=== PATIENT | male | born 1970 | race Caucasian/White ===

== ENCOUNTER → 2018-05-30 | Outpatient (CLI) | payer BC ==
[~2018-05-30] MED LIST: ATOR20TA58 PO; CARV6.25 PO; PANT40TA3 PO; RAMI5CAP50 PO
--- NOTE | 2018-05-30 11:49 | CARD ---
MR#: [id number] Date of Study: 05/30/2018 Ordering Physician: JANUSZ FULTON, Referring Physician: JANUSZ FULTON Tech: Miladys Mane RDCS APPROVED REPORT EXAM: Two-dimensional and M-mode echocardiogram with Doppler and color Doppler. Other Information Quality : AverageHR: 64bpm Rhythm : NSR INDICATION CAD 2D DIMENSIONS RVDd2.8 (2.9-3.5cm)Left Atrium(2D)4.1 (1.6-4.0cm) IVSd1.3 (0.7-1.1cm)Aortic Root(2D)3.5 (2.0-3.7cm) LVDd5.1 (3.9-5.9cm)LVOT Diameter2.0 (1.8-2.4cm) PWd1.0 (0.7-1.1cm)LVDs3.7 (2.5-4.0cm) FS (%) 27.4 %SV66.0 ml LVEF(%)53.0 (>50%) M-Mode DIMENSIONS Left Atrium(MM)3.89 (2.5-4.0cm)Aortic Root3.23 (2.2-3.7cm) Aortic Valve AoV Peak Lamberto.153.4cm/sAoV VTI28.1cm AO Peak GR.9.4mmHgLVOT Peak Lamberto.124.6cm/s AO Mean GR.5mmHgAVA (VMAX)2.43cm2 SAMSON (VTI)2.40cm2 Mitral Valve MV E Iyvzecut28.2cm/sMV DECEL ZVBI494xt MV A Awbrxdav483.6cm/sE/A Ratio0.8 MV A Kcsdviri971fu Pulmonary Valve PV Peak Dmjywnvd296.8cm/s LEFT VENTRICLE The left ventricle is normal size. Proximal septal thickening is noted. The left ventricle systolic f unction is normal. The Ejection Fraction is 55%. There is normal LV segmental wall motion. Transmitra l Doppler flow pattern is Grade I-abnormal relaxation pattern. RIGHT VENTRICLE The right ventricle is normal size. There is normal right ventricular wall thickness. The right ventr icular systolic function is normal. ATRIA The left atrium size is normal. The right atrium size is normal. The interatrial septum is intact wit h no evidence for an atrial septal defect or patent foramen ovale as noted on 2-D or Doppler imaging. AORTIC VALVE The aortic valve is normal in structure and function. The aortic valve is trileaflet. Doppler and Col or Flow revealed no significant aortic regurgitation. There is no significant aortic valvular stenosi s. MITRAL VALVE The mitral valve is normal in structure and function. There is no evidence of mitral valve prolapse. There is no mitral valve stenosis. Doppler and Color Flow revealed no mitral valve regurgitation note d. TRICUSPID VALVE The tricuspid valve is normal in structure and function. Doppler and Color Flow revealed trace tricus pid regurgitation. There is no tricuspid valve prolapse or vegetation. There is no tricuspid valve st enosis. PULMONIC VALVE The pulmonary valve is normal in structure and function. Doppler and Color Flow revealed trace pulmon ic valvular regurgitation. There is no pulmonic valvular stenosis. GREAT VESSELS The aortic root is normal in size. The ascending aorta is normal in size. PERICARDIAL EFFUSION There is no evidence of significant pericardial effusion. Critical Notification Critical Value: No <Conclusion> The left ventricle systolic function is normal. The Ejection Fraction is 55%. There is normal LV segmental wall motion. Transmitral Doppler flow pattern is Grade I-abnormal relaxation pattern. Doppler and Color Flow revealed trace tricuspid regurgitation. There is no evidence of significant pericardial effusion. Signed by : Janusz Fulton, Electronically Approved : 05/30/2018 11:46:51
== END | disposition home or self-care (01) ==
LOC: ECHO 10:54
PROVIDERS: ATTEND Internal Medicine Cardiovascular Disease
DX: I25.10 Atherosclerotic heart disease of native coronary artery without angina pectoris (principal)
CPT/HCPCS: 93306

== ENCOUNTER → 2019-05-09 | Outpatient (CLI) | payer BC, OTHER ==
[~2019-05-09] MED LIST changes: -PANT40TA3 PO; +PANT40TA77 PO
--- NOTE | 2019-05-09 13:11 | RAD ---
MR#: [id number] Date of Study: 05/09/2019 Ordering Physician: JANUSZ BRAGA, Referring Physician: NIXON RASHEED Tech: KASSIE Luna ARRT (R) (N) APPROVED REPORT Test Type: Exercise Stress Nurse/Tech: JUS Gallagher Test Indications: CAD Cardiac History: PR w/stent, HTN , See Electronic Medical Record Medications: See Electronic Medical Record Medical History: See Electronic Medical Record Resting ECG: SR per monitor Resting Heart Rate: 64 bpm Resting Blood Pressure: 147/94mmHg Pretest Chest Pain: No chest pain Nurse/Tech Notes S1S2, lungs CTA, denies SOA or CP at this time. Consent: The procedure was explained to the patient in lay terms. Informed consent was witnessed. Agapito eout was entered into [facility]. History and Stress Test performed by RT Kamila (R) (N) Stress Symptoms Pt responded appropriately during treadmill stress, denied CP or SOA. POST EXERCISE Reason for Termination: Reached target heart rate Target HR: 143 Max HR: 151 bpm 90% of Maximum Predicted HR: 169 bpm Exercise duration: 12 min:sec, 4 Stage Exercise capacity: 13.4METs Max Blood Pressure: 187/94mmHg Blood Pressure response to exercise: Normal blood pressure response during stress. Heart Rate response to exercise: Normal response during stress Chest Pain: No. Arrhythmia: No. ST Change: No. INTERPRETATION Stress EKG Conclusion: The resting EKG showed a sinus rhythm with nonspecific ST-T wave changes as we ll as septal and inferior Q waves. The stress EKG showed no significant changes from baseline. No EKG evidence of stressed induced ischemia. Imaging Protocol IMAGE PROTOCOL: Rest Tc-99m/stress Tc-99m 1 day Rest: Stress: Viability: Radiopharm.Tc99m RcbuzsxeuJz75b Sestamibi Aqlf76yMc 33mCi Img Date 05/09/2019 05/09/2019 Rest Admin Site:IV - Right AntecubitalAdministrator:KASSIE Luna ARRT (R)(N) Stress Admin Site: IV - Right AntecubitalAdministrator: Suleiman Valdez, RT (R)(N) STRESS DATA End Diast. Vol.141.0mlLVEDV index BSA66.0ml End Syst. Vol.55.0mlLVESV index BSA26.0ml Myocardial Ekgw281.0gEject. Agtphrwc75.0% Stress Scores Regional WT0.00Summed WT1.00 Regional WM0.00Summed WM16.00 LV Perfusion The stress scans show an apical septal defect. The rest scans show an apical septal defect. Nuclear imaging shows no reversible ischemia. 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 Wall Motion Left ventricular systolic function shows a septal wall motion abnormality and an ejection fraction of 61%. LV Perf. Quant 17 Seg. SSS20.00 17 Seg. SRS23.00 17 Seg. SDS0.00 Stress Defect Extent (% LAD)71.30Rest Defect Extent (% LAD)73.10Rev. Defect Extent (% LAD)0.00 Stress Defect Extent (% LCX) 1.30Rest Defect Extent (% LCX)10.00Rev. Defect Extent (% LCX)0.00 Stress Defect Extent (% RCA)23.30Rest Defect Extent (% RCA)34.40Rev. Defect Extent (% RCA)0.00 Stress Defect Extent (% CHITRA)44.60Rest Defect Extent (% CHITRA)51.10Rev. Defect Extent (% CHITRA)0.00 Conclusion 1. Abnormal resting EKG but no EKG evidence of stress-induced ischemia. 2. Nuclear imaging shows no significant reversible ischemia. 3. 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 4. Left ventricular systolic function is 61% with a septal wall motion abnormality. 5. Moderate to moderately low risk Lexiscan nuclear stress test with no evidence of significant rever sible ischemia and an EF of 61%. Signed by : Forrest Evans MD Electronically Approved : 05/09/2019 13:10:43
== END ==
LOC: NM 07:57
PROVIDERS: ATTEND Internal Medicine Cardiovascular Disease
DX: I25.10 Atherosclerotic heart disease of native coronary artery without angina pectoris (principal); I10 Essential (primary) hypertension; E78.00 Pure hypercholesterolemia, unspecified
CPT/HCPCS: 78452; 93017; A9500

== ENCOUNTER → 2020-05-13 | Outpatient (CLI) | payer BC ==
--- NOTE | 2020-05-13 12:15 | CARD ---
MR#: [id number] Date of Study: 05/13/2020 Ordering Physician: JANUSZ BRAGA, Referring Physician: JANUSZ BRAGA Tech: Fabiola López RDCS APPROVED REPORT EXAM: Two-dimensional and M-mode echocardiogram with Doppler and color Doppler. Other Information Quality : Fair INDICATION Cardiac Disease: CAD 2D DIMENSIONS RVDd2.8 (2.9-3.5cm)Left Atrium(2D)3.8 (1.6-4.0cm) IVSd0.7 (0.7-1.1cm)Aortic Root(2D)3.1 (2.0-3.7cm) LVDd5.0 (3.9-5.9cm)LVOT Diameter2.1 (1.8-2.4cm) PWd0.8 (0.7-1.1cm)LVDs3.0 (2.5-4.0cm) FS (%) 27.7 %SV114.0 ml LVEF(%)52.6 (>50%) Aortic Valve AoV Peak Lamberto.189.3cm/sAoV VTI35.9cm AO Peak GR.14.3mmHgLVOT Peak Lamberto.178.2cm/s AO Mean GR.8mmHgAVA (VMAX)3.40cm2 SAMSON (VTI)3.50cm2 Mitral Valve MV E Ezbwuquv272.4cm/sMV DECEL IHZR355qs MV A Ajqklgqh906.2cm/sE/A Ratio0.8 Tricuspid Valve TR P. Uljwwzgy084zj/sRAP XZJQNEGB6laUy TR Peak Gr.47ljRjMYON42wfPj Pulmonary Vein S1 Pgdpftwl94.3cm/sD2 Wacfldxz52.5cm/s LEFT VENTRICLE The left ventricle is normal size. There is normal left ventricular wall thickness. Left ventricle sy stolic function is low normal. The Ejection Fraction is 50-55%. There is mild hypokinesis in the mid anteroseptal and mid to apical septal marcial. Transmitral Doppler flow pattern is Grade I-abnormal rel axation pattern. RIGHT VENTRICLE The right ventricle is normal size. The right ventricular systolic function is normal. ATRIA The left atrium size is normal. The right atrium size is normal. The interatrial septum is intact wit h no evidence for an atrial septal defect or patent foramen ovale as noted on 2-D or Doppler imaging. AORTIC VALVE The aortic valve is calcified but opens well. Doppler and Color Flow revealed no significant aortic r egurgitation. There is no significant aortic valvular stenosis. MITRAL VALVE The mitral valve is calcified but opens well. There is no evidence of mitral valve prolapse. There is no mitral valve stenosis. Doppler and Color-flow revealed trace mitral regurgitation. TRICUSPID VALVE The tricuspid valve is normal in structure and function. Doppler and Color Flow revealed trace tricus pid regurgitation. The PA pressure was estimated at 29 mmHg. There is no tricuspid valve stenosis. PULMONIC VALVE The pulmonic valve is not well visualized. Doppler and Color Flow revealed trace pulmonic valvular re gurgitation. There is no pulmonic valvular stenosis. GREAT VESSELS The aortic root is normal in size. The ascending aorta is not well seen. The IVC is normal in size an d collapses >50% with inspiration. PERICARDIAL EFFUSION There is no evidence of significant pericardial effusion. Critical Notification Critical Value: No <Conclusion> The left ventricle is normal size. Left ventricle systolic function is low normal. The Ejection Fraction is 50-55%. There is mild hypokinesis in the mid anteroseptal and mid to apical septal marcial. Doppler and Color Flow revealed no significant aortic regurgitation. There is no significant aortic valvular stenosis. Doppler and Color-flow revealed trace mitral regurgitation. Doppler and Color Flow revealed trace tricuspid regurgitation. The PA pressure was estimated at 29 mmHg. Signed by : Forrest Evans MD Electronically Approved : 05/13/2020 12:15:05
== END ==
LOC: ECHO 07:50
PROVIDERS: ATTEND Internal Medicine Cardiovascular Disease
DX: I08.0 Rheumatic disorders of both mitral and aortic valves (principal); I25.10 Atherosclerotic heart disease of native coronary artery without angina pectoris
CPT/HCPCS: 93306

== ENCOUNTER → 2021-05-20 | Outpatient (CLI) | payer BC ==
[~2021-05-20] MED LIST changes: +REGADENOSON 0.4 MG/5 ML DISP.SYRIN. IV ONE
--- NOTE | 2021-05-21 09:49 | RAD ---
MR#: [id number] Date of Study: 05/20/2021 Ordering Physician: JANUSZ BRAGA Referring Physician: NIXON RASHEED Tech: RT Isacc (R) (N) APPROVED REPORT Test Type: Pharmacological Stress Nurse/Tech: Malia Marr RN Test Indications: CAD Cardiac History: HTN, Cardiac stent z1=4931, See EMR. Medications: See EMR. Medical History: X-Smoker, See EMR. Resting ECG: SR Resting Heart Rate: 60 bpm Resting Blood Pressure: 129/86mmHg Pretest Chest Pain: No chest pain Nurse/Tech Notes Lungs CTA, Heart tones regular. Consent: The procedure was explained to the patient in lay terms. Informed consent was witnessed. Agapito eout was entered into [employer]. History and Stress Test performed by FAMILIA Farrell Pharm. Details Pharmacologic stress testing was performed using 0.4mg per 5ml of regadenoson given intravenously ove r 7-10 seconds. Stress Symptoms No chest pain or symptoms. POST EXERCISE Reason for Termination: Infusion complete Max HR: 84 bpm Max Blood Pressure: 136/91mmHg Blood Pressure response to exercise: Normal blood pressure response during stress. Heart Rate response to exercise: WNL Chest Pain: No. Arrhythmia: No. ST Change: No. INTERPRETATION Stress EKG Conclusion: The resting EKG shows a sinus rhythm with septal Q waves and nonspecific ST se gment changes. The stress EKG shows no significant changes from baseline. No EKG evidence of stress-induced ischemia. Imaging Protocol IMAGE PROTOCOL: Rest Tc-99m/stress Tc-99m 1 day Rest: Stress: Viability: Radiopharm.Tc99m EhbmluxnjJo35p Sestamibi Lszv32lCa 33mCi Duration 13min. 13min. Img Date 05/20/2021 05/20/2021 Inj-Img Lesh01cnf. 60min. Rest Admin Site:IV - Right AntecubitalAdministrator:RT Isacc (R)(N) Stress Admin Site: IV - Right AntecubitalAdministrator: FAMILIA Farrell STRESS DATA End Diast. Vol.156.0mlLVEDV index BSA72.0ml End Syst. Vol.70.0mlLVESV index BSA33.0ml Myocardial Ranm394.0gEject. Kkuaiqfl77.0% Stress Scores Regional WT1.00Summed WT16.00 Regional WM0.00Summed WM10.00 LV Perfusion The stress scans show a apical/lateral defect. The rest scans show an apical/lateral defect. Nuclear imaging shows no reversible ischemia. Nuclear imaging shows a infarct in the apical, lateral wall. Wall Motion Left ventricular systolic function is intact with an ejection fraction of 55%. LV Perf. Quant 17 Seg. SSS20.00 17 Seg. SRS24.00 17 Seg. SDS0.00 Stress Defect Extent (% LAD)71.90Rest Defect Extent (% LAD)74.40Rev. Defect Extent (% LAD)0.60 Stress Defect Extent (% LCX) 8.80Rest Defect Extent (% LCX)10.00Rev. Defect Extent (% LCX)0.00 Stress Defect Extent (% RCA)22.20Rest Defect Extent (% RCA)45.60Rev. Defect Extent (% RCA)0.00 Stress Defect Extent (% CHITRA)46.70Rest Defect Extent (% CHITRA)54.10Rev. Defect Extent (% CHITRA)0.20 Conclusion 1. Abnormal baseline EKG but no EKG evidence of stress-induced ischemia. 2. Nuclear imaging shows no reversible ischemia. 3. Nuclear imaging shows a prior infarct in the lateral/apical wall. 4. LV ejection fraction is 55%. 5. Moderate to moderately low risk Lexiscan nuclear stress test. Signed by : Forrest Evans MD Electronically Approved : 05/21/2021 09:49:33
== END ==
LOC: NM 14:42
PROVIDERS: ATTEND Internal Medicine Cardiovascular Disease
DX: I21.9 Acute myocardial infarction, unspecified (principal); I25.10 Atherosclerotic heart disease of native coronary artery without angina pectoris; R94.31 Abnormal electrocardiogram [ECG] [EKG]
CPT/HCPCS: 78452; 93017; A9500; J2785